=== PATIENT | male | born 1975 | race Caucasian/White ===

== ENCOUNTER 2018-01-18 10:42 | Emergency (ER) | payer BC ==
[2018-01-18 10:51] VITALS: TEMP 98.1; BMI 47.9
[2018-01-18] MEDS ORDERED: morphine CARPU-JECT 4 MG/1 ML DISP.SYRIN IVPUSH ONE (11:09)
--- NOTE | 2018-01-18 11:22 | PDOC ---
History of Present Illness - General Chief Complaint: Pain Stated Complaint: LEFT FLANK PAIN Time Seen by Provider: 01/18/18 10:45 History Source: Patient Exam Limitations: No Limitations - History of Present Illness Initial Comments: 01/18/18 11:24 42 year old w/ a history of obesity and HAKEEM who presents with sharp L sided flank pain that woke him up from sleep 6 days ago went away and returned this AM. The patient notes that the pain does not radiate into the groin or the leg. He denies nausea, vomiting, diarrhea, constipation or fevers but admits that there has been some darkening of the urine throughout the week. He denies any chest pain or shortness of breath. He denies any other complaints at bedside. Past History - Past Medical History Allergies/Adverse Reactions: Allergies Allergy/AdvReac Type Severity Reaction Status Date / Time No Known Allergies Allergy Verified 01/18/18 10:45 Home Medications: Ambulatory Orders Ibuprofen [Motrin -] 600 mg PO TID #21 tablet 01/18/18 Anemia: No Asthma: No Cancer: No Cardiac Disorders: No CVA: No COPD: No CHF: No Dementia: No Diabetes: No GI Disorders: No Disorders: No HTN: No Hypercholesterolemia: No Liver Disease: No Seizures: No Thyroid Disease: No Other medical history: SLEEP APNEA - Suicide/Smoking/Psychosocial Hx Smoking History: Never smoked Hx Alcohol Use: Yes (rarely) Drug/Substance Use Hx: No Substance Use Type: Marijuana Review of Systems - Review of Systems Able to Perform ROS?: Yes Is the patient limited Wallisian proficient: No Constitutional: No: Chills, Diaphoresis, Fever HEENTM: No: Blurred Vision, Tinnitus Respiratory: No: Cough, Orthopnea, Shortness of Breath Cardiac (ROS): No: Chest Pain, Palpitations, Syncope, Chest Tightness ABD/GI: No: Constipated, Diarrhea, Nausea, Vomiting : Yes: See HPI, Flank Pain. No: Burning, Dysuria, Hematuria Musculoskeletal: No: Back Pain, Muscle Pain, Muscle Weakness Neurological: No: Headache, Numbness, Paresthesia, Tingling *Physical Exam - Vital Signs Last Vital Signs Temp Pulse Resp BP Pulse Ox 98.1 F 86 18 121/75 98 01/18/18 10:44 01/18/18 10:44 01/18/18 10:44 01/18/18 10:44 01/18/18 10:44 - Physical Exam Comments: 01/18/18 12:37 GENERAL: Awake, alert, and fully oriented, in no acute distress HEAD: No signs of trauma, normocephalic, atraumatic EYES: EOMI, sclera anicteric, conjunctiva clear ENT: oropharynx clear without exudates. Moist mucosa NECK: Normal ROM, supple LUNGS: No distress, speaks full sentences, clear to auscultation bilaterally HEART: Regular rate and rhythm, normal S1 and S2, no murmurs, rubs or gallops, peripheral pulses normal and equal bilaterally. BACK: L CVA tenderness ABDOMEN: Soft, nontender, normoactive bowel sounds. No guarding, no rebound. No masses EXTREMITIES : Normal inspection, Normal range of motion, no edema. No clubbing or cyanosis. NEUROLOGICAL: Cranial nerves II through XII grossly intact. Normal speech, no focal sensorimotor deficits SKIN: Warm, Dry, normal turgor, no rashes or lesions noted ED Treatment Course - LABORATORY CBC & Chemistry Diagram: 01/18/18 12:10 01/18/18 12:10 Medical Decision Making - Medical Decision Making 42 year old w/ a history of obesity and HAKEEM who presents with sharp L sided flank pain that woke him up from sleep 6 days ago went away and returned this AM. The patient notes that the pain does not radiate into the groin or the leg. He denies nausea, vomiting, diarrhea, constipation or fevers but admits that there has been some darkening of the urine throughout the week. He denies any chest pain or shortness of breath. He denies any other complaints at bedside. DDX including but not limited to: nephrolithiasis vs UTI vs pyelonephritis W/U: - cbc,cmp - ua, ucx - CT-stone TX: - NS - morphine ED Course: 01/18/18 12:30 CT abd: 5mm L UVJ stone 01/18/18 12:39 Toradol, Flomax given 01/18/18 12:59 Patient reassessed. Patient reports that pain under control with toradol and morphine. Discussed with patient follow up and referral to urology. Strict return precautions given. Patient stable for discharge. Informed of all lab and imaging results. Given follow up instructions and strict return precautions. Patient expressed understanding and agree to plan. *DC/Admit/Observation/Transfer Diagnosis at time of Disposition: Kidney stone on left side - Discharge Dispostion Disposition: HOME Condition at time of disposition: Stable Decision to Admit order: No - Prescriptions Prescriptions: Ibuprofen [Motrin -] 600 mg PO TID #21 tablet - Referrals Referrals: Carl Linares MD [Primary Care Provider] - Alejandro Walters MD [Staff Physician] - - Patient Instructions Printed Discharge Instructions: DI for Kidney Stones Additional Instructions: You were seen in the ED for complaints of L sided flank pain. In the ED you were evaluated with labwork and imaging. Your results showed a 5mm L kidney stone. There does not appear to be an acute need for immediate hospitalization. You are advised to follow up with your Primary Care Physician within 1 week. You were given a referral to Urology and are advised to follow up in 3-4 days. You were given a prescription for Motrin 600mg three times a day and a urine strainer to urinate through. Return to the ED immediately if you experience worsening flank and abdominal pain, blood in the urine, fevers, nausea, vomiting, blood in stool, diarrhea or constipation. - Post Discharge Activity
[2018-01-18 11:30] LABS: PH,URINE 5.5 (4.5-8); URINE APPEARANCE Clear; URINE BILIRUBIN Negative (NEGATIVE); URINE COLOR Yellow; URINE GLUCOSE (UA) Negative (NEGATIVE); URINE KETONE Negative (NEGATIVE); URINE LEUK ESTERASE Negative (NEGATIVE); URINE NITRITE Negative (NEGATIVE); URINE PROTEIN Negative (NEGATIVE); URINE UROBILINOGEN 0.2 (0.2-1.0); URINE WBC 0-2 (0-2)
[2018-01-18] MEDS ORDERED: morphine SULFATE 4 MG/ML VIAL ONE (11:50)
--- NOTE | 2018-01-18 11:57 | PDOC ---
Attending Attestation - Resident Resident Name: Adriana Elias - ED Attending Attestation I have performed the following: I have examined & evaluated the patient, The case was reviewed & discussed with the resident, I agree w/resident's findings & plan, Exceptions are as noted - HPI HPI: 01/18/18 11:56 42yo male with h/o obesity, here today c/o left flank pain awoke him from sleep. sharp, radiating down to mid abd. no mod factors. denies urinary complaints such as dysuria or hematuria. no f/c no other complaint.s no change to bowel. no h/o renal colic. did have similar pain 10 days ago. no other complaints. no injuries. no change with movement. - Physicial Exam PE: 01/18/18 11:54 01/18/18 11:56 01/18/18 11:56 awake alert lungs clear bilaterally heart rrr no mrg abd soft obese nt nd no cva tenderenss. ext wwp no edema. nuero alert oriented x 3. - Medical Decision Making 01/18/18 11:57 differential uti pyelo renal colic, msk strain. plan ct a/p ua labs pain control reassess. 01/18/18 13:02 5 mm stone left uvj, mild hydro. d/w ficazzola. pain controlled. will dc on flomax and motrin.
[2018-01-18] MEDS ORDERED: SODIUM CHLORIDE 0.9% 1000 ML INFUS.BAG IV ONE (12:24)
[2018-01-18] MEDS ORDERED: KETOROLAC TROMETHAMINE 30 MG/1 ML VIAL IVPUSH ONE (12:24)
[2018-01-18 12:31] LABS: BASO % 0.4 % (0-2.0); EOS % 0.1 % (0-4.5); HEMATOCRIT 42.8 % (35.4-49); HEMOGLOBIN 14.2 GM/dl (11.7-16.9); LYMPH % 12.6 % (8-40); MCH 29.4 pg (25.7-33.7); MCHC 33.1 g/dl (32.0-35.9); MEAN CELL VOLUME 88.7 fl (80-96); MEAN PLT VOLUME 9.1 fl (7.5-11.1); MONO % 5.4 % (3.8-10.2); NEUT % 81.5 % (42.8-82.8); PLATELET COUNT 275 K/MM3 (134-434); RBC 4.82 M/mm3 (4.00-5.60); RDW 13.8 % (11.9-15.9); WHITE BLOOD COUNT 12.6 K/mm3 (4.0-10.8)
[2018-01-18 12:39] LABS: ALBUMIN 4.1 g/dl (3.5-5.0); ALK PHOS 86 U/L (32-92); ANION GAP 8 MMOL/L (8-16); BILIRUBIN,TOTAL 0.5 mg/dl (0.2-1.0); BLOOD UREA NITROGEN 15 mg/dl (7-18); CALCIUM 9.2 mg/dl (8.4-10.2); CHLORIDE 105 mmol/L (98-107); CO2 24 mmol/L (22-28); CREATININE 0.9 mg/dl (0.6-1.3); GLUCOSE,RANDOM 110 mg/dl (74-106); SGOT/AST 27 U/L (10-42); SGPT/ALT 26 U/L (10-40); SODIUM 137 mmol/L (136-145); TOT PROT 7.7 g/dl (6.4-8.3)
[2018-01-18] MEDS ORDERED: TAMSULOSIN HCL 0.4 MG CAP PO ONE (12:39)
[2018-01-18] MEDS ORDERED: KETOROLAC TROMETHAMINE 30 MG/1 ML VIAL ONE (12:42)
[2018-01-18] MEDS ORDERED: TAMSULOSIN HCL 0.4 MG CAP ONE (12:42)
[2018-01-18 13:23] VITALS: BP 126/70; PULSE 75
== END 2018-01-18 13:26 | disposition home or self-care (01) ==
LOC: FER 10:42
PROC: 3E0333Z Introduction of Anti-inflammatory into Peripheral Vein, Percutaneous Approach (ICD-10-PCS; principal; 2018-01-18)
PROC: 3E033NZ Introduction of Analgesics, Hypnotics, Sedatives into Peripheral Vein, Percutaneous Approach (ICD-10-PCS; 2018-01-18)
PROC: 3E0337Z Introduction of Electrolytic and Water Balance Substance into Peripheral Vein, Percutaneous Approach (ICD-10-PCS; 2018-01-18)
DX: N23 Unspecified renal colic (principal); G47.30 Sleep apnea, unspecified
CPT/HCPCS: 36415; 74176; 80053; 81003; 81015; 85025; 99283-25; J7030

== ENCOUNTER 2018-09-18 17:37 | Emergency (ER) | payer BC ==
[2018-09-18 17:42] VITALS: BMI 49.3
[2018-09-18 18:01] VITALS: BP 126/64; PULSE 90; TEMP 98.4
[2018-09-18 18:23] LABS: BASO % 0.5 % (0-2.0); EOS % 1.4 % (0-4.5); HEMATOCRIT 41.8 % (35.4-49); HEMOGLOBIN 13.6 GM/dl (11.7-16.9); LYMPH % 20.7 % (8-40); MCH 29.1 pg (25.7-33.7); MCHC 32.6 g/dl (32.0-35.9); MEAN CELL VOLUME 89.3 fl (80-96); MEAN PLT VOLUME 8.9 fl (7.5-11.1); MONO % 5.9 % (3.8-10.2); NEUT % 71.5 % (42.8-82.8); PLATELET COUNT 271 K/MM3 (134-434); RBC 4.69 M/mm3 (4.00-5.60); RDW 14.5 % (11.9-15.9); WHITE BLOOD COUNT 10.1 K/mm3 (4.0-10.8)
[2018-09-18 18:41] LABS: ALBUMIN 3.8 g/dl (3.4-5.0); BILIRUBIN,TOTAL 0.5 mg/dl (0.2-1); CALCIUM 9.7 mg/dl (8.5-10); CREATININE 0.8 mg/dl (0.55-1.3); POTASSIUM 4.2 mmol/L (3.5-5.1); TOT PROT 7.2 g/dl (6.4-8.2)
--- NOTE | 2018-09-18 19:14 | PDOC ---
Documentation entered by Morelia Jacobs SCRIBE, acting as scribe for Ravi Srinivasan MD. Ravi Srinivasan MD: This documentation has been prepared by the fitoibReynaldo weems Natalie, SCRIBE, under my direction and personally reviewed by me in its entirety. I confirm that the documentation accurately reflects all work, treatment, procedures, and medical decision making performed by me. History of Present Illness - General Chief Complaint: Chest Pain Stated Complaint: CHEST PAIN X 2 WEEKS History Source: Patient Exam Limitations: No Limitations - History of Present Illness Initial Comments: 09/18/18 18:19 The patient is a 43-year-old male, with a past medical history of sleep apnea ( sleep with CPAP at night, who presents to the ED with 1 week of LT-sided chest pain. The patient describes his pain as intermittent, achy/sharp in sensation, radiating down his LT arm, worsened with deep inspiration, and accompanied by a nonproductive cough. The patient denies doing anything in particular when the pain comes on. He has never experienced symptoms like this in the past. The patient denies any fevers, chills, nausea, vomiting, diarrhea, constipation , or abdominal pain. He denies any palpitations or shortness of breath. Denies any weakness, lightheadedness or changes in strength or sensation. Allergies: NKA Social History: Reports daily marijuana use. Family History: Father has a permanent pacemaker. He denies any history of CA. PCP: Dr. Carl Linares Past History - Past Medical History Allergies/Adverse Reactions: Allergies Allergy/AdvReac Type Severity Reaction Status Date / Time No Known Allergies Allergy Verified 09/18/18 17:38 Home Medications: Ambulatory Orders NK [No Known Home Medication] 09/18/18 Anemia: No Asthma: No Cancer: No Cardiac Disorders: No CVA: No COPD: No CHF: No Dementia: No Diabetes: No GI Disorders: No Disorders: No HTN: No Hypercholesterolemia: No Liver Disease: No Seizures: No Thyroid Disease: No - Suicide/Smoking/Psychosocial Hx Smoking History: Former smoker Have you smoked in the past 12 months: No Information on smoking cessation initiated: No Hx Alcohol Use: Yes (2X MONTH) Drug/Substance Use Hx: Yes (DAILY MARIJUANA) Substance Use Type: Marijuana Cardiac Specific PMH - Complaint Specific PMHX Pacemaker: No Review of Systems - Review of Systems Able to Perform ROS?: Yes Comments:: 09/18/18 18:20 CONSTITUTIONAL: Absent: fever, chills, diaphoresis, generalized weakness, malaise, loss of appetite HEENT: Absent: rhinorrhea, nasal congestion, throat pain, throat swelling, difficulty swallowing, mouth swelling, ear pain, eye pain, visual Changes CARDIOVASCULAR: (+)LT-sided chest pain. Absent: syncope, palpitations, irregular heart rate, lightheadedness, peripheral edema RESPIRATORY: (+)Cough. Absent: shortness of breath, dyspnea with exertion, orthopnea, wheezing, stridor, hemoptysis GASTROINTESTINAL: Absent: abdominal pain, abdominal distension, nausea, vomiting, diarrhea, constipation, melena, hematochezia GENITOURINARY: Absent: dysuria, frequency, urgency, hesitancy, hematuria, flank pain, genital pain MUSCULOSKELETAL: (+)LT arm pain. Absent: arthralgia, joint swelling SKIN: Absent: rash, itching, pallor HEMATOLOGIC/IMMUNOLOGIC: Absent: easy bleeding, easy bruising, lymphadenopathy, frequent infections ENDOCRINE: Absent: unexplained weight gain, unexplained weight loss, heat intolerance, cold intolerance NEUROLOGIC: Absent: headache, focal weakness or paresthesias, dizziness, unsteady gait, seizure, mental status changes, bladder or bowel incontinence PSYCHIATRIC: Absent: anxiety, depression, suicidal or homicidal ideation, hallucinations. *Physical Exam - Vital Signs Last Vital Signs Temp Pulse Resp BP Pulse Ox 98.4 F 90 18 126/64 100 09/18/18 17:38 09/18/18 17:38 09/18/18 17:38 09/18/18 17:38 09/18/18 17:38 - Physical Exam Comments: 09/18/18 18:21 GENERAL: Well developed, well nourished. Awake and alert. No acute distress. HEENT: Normocephalic, atraumatic. PERRLA, EOMI. No conjunctival pallor. Sclera are non- icteric. Moist mucous membranes. Oropharynx is clear. NECK: Supple. Full ROM. No JVD. Carotid pulses 2+ and symmetric, without bruits. No thyromegaly. No lymphadenopathy. CARDIOVASCULAR: Regular rate and rhythm. No murmurs, rubs, or gallops. Distal pulses are 2+ and symmetric. PULMONARY: No evidence of respiratory distress. Lungs clear to auscultation bilaterally. No wheezing, rales or rhonchi. ABDOMINAL: Soft. Non-tender. Non-distended. No rebound or guarding. No organomegaly. Normoactive bowel sounds. MUSCULOSKELETAL Normal range of motion at all joints. No bony deformities or tenderness. No CVA tenderness. EXTREMITIES: No cyanosis. No clubbing. No edema. No calf tenderness. SKIN: Warm and dry. Normal capillary refill. No rashes. No jaundice. NEUROLOGICAL: Alert, awake, appropriate. Cranial nerves 2-12 intact. PSYCHIATRIC: Cooperative. Good eye contact. Appropriate mood and affect. ED Treatment Course - LABORATORY CBC & Chemistry Diagram: 09/18/18 18:10 09/18/18 18:10 - ADDITIONAL ORDERS Additional order review: Laboratory Results 09/18/18 09/18/18 18:10 18:10 Sodium 142 Potassium 4.2 Chloride 105 Carbon Dioxide 28 Anion Gap 9 BUN 21.0 H Creatinine 0.8 Est GFR (CKD-EPI)AfAm 127.70 Est GFR (CKD-EPI)NonAf 110.18 Random Glucose 122 H Calcium 9.7 Total Bilirubin 0.5 AST 30 ALT 30 Alkaline Phosphatase 77 Creatine Kinase 463 H Troponin I < 0.03 Total Protein 7.2 Albumin 3.8 09/18/18 18:10 RBC 4.69 MCV 89.3 MCHC 32.6 RDW 14.5 MPV 8.9 Neutrophils % 71.5 Lymphocytes % 20.7 D Monocytes % 5.9 Eosinophils % 1.4 D Basophils % 0.5 - RADIOLOGY Radiology Studies Ordered: Category Date Time Status CHEST X-RAY PORTABLE* [RAD] Stat Radiology 09/18/18 18:16 Taken Medical Decision Making - Medical Decision Making 09/18/18 17:57 EKG: Normal sinus rhythm 90 per minute. Normal axis and intervals. No ST-T wave changes. Normal EKG. *DC/Admit/Observation/Transfer Diagnosis at time of Disposition: Musculoskeletal chest pain - Discharge Dispostion Disposition: HOME Condition at time of disposition: Stable Decision to Admit order: No - Referrals Referrals: Carl Linares MD [Primary Care Provider] - 2 Days Silvano Brice MD [Staff Physician] - - Patient Instructions Printed Discharge Instructions: DI for Atypical Chest Pain Additional Instructions: No strenuous work with the upper body. Motrin or Aleve. Although there is no sign of heart disease in your present emergency room evaluation, because of your age and risk factors, consider seeing a building equipment inspector and obtaining a stress test Return to ER if your pain becomes more severe, more sustained, or is made worse by exertion or strenuous activity. - Post Discharge Activity
--- NOTE | 2018-09-19 10:12 | EKG ---
Test Reason : Blood Pressure : / mmHG Vent. Rate : 090 BPM Atrial Rate : 090 BPM P-R Int : 120 ms QRS Dur : 096 ms QT Int : 342 ms P-R-T Axes : 077 029 018 degrees QTc Int : 418 ms NORMAL SINUS RHYTHM NORMAL ECG NO PREVIOUS ECGS AVAILABLE Confirmed by YESSENIA HOFFMAN MD ([id number]) on 09/19/2018 10:12:04 AM Referred By: MD BABCOCK Confirmed By:YESSENIA HOFFMAN MD
== END 2018-09-18 19:17 | disposition home or self-care (01) ==
LOC: FER 17:37
DX: M79.10 Myalgia, unspecified site (principal); Z87.891 Personal history of nicotine dependence
CPT/HCPCS: 36415; 71045-TC-FY; 80053; 82550; 82553; 84484; 85025; 93005; 99281-25

== ENCOUNTER 2020-09-09 19:44 | Emergency (ER) | payer BC ==
[2020-09-09 20:07] VITALS: BP 143/96; PULSE 95; TEMP 99.2; BMI 50.5
[2020-09-09 20:31] LABS: BASO % 0.6 % (0-2.0); LYMPH % 18.9 % (8-40); MCH 30.6 pg (25.7-33.7); MCHC 34.8 g/dl (32.0-35.9); MEAN PLT VOLUME 8.6 fl (7.5-11.1); MONO % 5.1 % (3.8-10.2); NEUT % 74.4 % (42.8-82.8); PLATELET COUNT 289 10^3/uL (134-434); RBC 4.89 M/mm3 (4.00-5.60); RDW 13.6 % (11.9-15.9)
[2020-09-09 20:44] LABS: ALBUMIN 4.1 g/dl (3.4-5.0); ALK PHOS 88 U/L (45-117); ANION GAP 11 MMOL/L (8-16); BILIRUBIN,TOTAL 0.6 mg/dl (0.2-1); CALCIUM 9.3 mg/dl (8.5-10); CHLORIDE 101 mmol/L (98-107); CO2 25 mmol/L (21-32); CREATININE 0.8 mg/dl (0.55-1.3); GLUCOSE,RANDOM 103 mg/dl (74-106); SGOT/AST 20 U/L (15-37); SGPT/ALT 31 U/L (13-61); SODIUM 137 mmol/L (136-145)
== END 2020-09-09 22:43 | disposition home or self-care (01) ==
LOC: FER 19:44
DX: R10.9 Unspecified abdominal pain (principal)
CPT/HCPCS: 36415; 74176-TC; 80053; 81003; 82550; 82553; 84484; 85025; 93005; 99284-25

== ENCOUNTER 2020-10-28 04:49 | Day surgery (SDC) | payer BC ==
[2020-10-27 08:40] VITALS: BMI 50.5
[2020-10-28 14:04] VITALS: TEMP 97.3
[2020-10-28 14:39] VITALS: BP 108/67; PULSE 67
== END 2020-10-28 15:10 | disposition home or self-care (01) ==
LOC: JASU-ENDO 04:49
PROVIDERS: ATTEND Internal Medicine Gastroenterology
PROC: 0DBH8ZX Excision of Cecum, Via Natural or Artificial Opening Endoscopic, Diagnostic (ICD-10-PCS; 2020-10-28)
PROC: 0DB68ZX Excision of Stomach, Via Natural or Artificial Opening Endoscopic, Diagnostic (ICD-10-PCS; 2020-10-28)
PROC: 0DBF8ZX Excision of Right Large Intestine, Via Natural or Artificial Opening Endoscopic, Diagnostic (ICD-10-PCS; principal; 2020-10-28 11:15)
DX: K62.5 Hemorrhage of anus and rectum (principal); K25.9 Gastric ulcer, unspecified as acute or chronic, without hemorrhage or perforation; K29.50 Unspecified chronic gastritis without bleeding; R12 Heartburn; D12.0 Benign neoplasm of cecum
CPT/HCPCS: 88305-TC; 88342-TC

== ENCOUNTER 2023-01-05 11:17 | Emergency (ER) | payer BC ==
[2023-01-05 11:43] VITALS: BP 102/70; PULSE 82; RESP 18; TEMP 98.5; BMI 43.5
[2023-01-05] MEDS ORDERED: IBUPROFEN 400 MG TABLET (FP) PO ONE ×2 (12:21→12:36)
== END 2023-01-05 12:47 | disposition home or self-care (01) ==
LOC: FER 11:17
DX: R10.9 Unspecified abdominal pain (principal); N20.0 Calculus of kidney
CPT/HCPCS: 81003; 99283-25

== ENCOUNTER 2023-01-29 04:56 | Day surgery (SDC) | payer BC ==
[2023-01-26 08:20] VITALS: BMI 43.4
[2023-01-29] MEDS ORDERED: MIDAZOLAM HCL 2 MG/2 ML SINGLE DOSE VIAL ONE (10:12)
[2023-01-29] MEDS ORDERED: ONDANSETRON 4 MG/2 ML VIAL ONE (10:12)
[2023-01-29] MEDS ORDERED: FENTANYL CITRATE/PF 50 MCG/ML VIAL ONE (10:12)
[2023-01-29 11:16] VITALS: BP 118/72; PULSE 76; RESP 18; TEMP 97.5
== END 2023-01-29 11:40 | disposition home or self-care (01) ==
LOC: JASU-SURG 04:56
PROVIDERS: ATTEND Urology
PROC: 0TF4XZZ Fragmentation in Left Kidney Pelvis, External Approach (ICD-10-PCS; principal; 2023-01-29 10:30)
DX: N20.0 Calculus of kidney (principal)

== ENCOUNTER 2023-03-26 04:39 | Day surgery (SDC) | payer BC ==
[2023-03-20 15:12] VITALS: BMI 43.4
[2023-03-26 14:29] VITALS: RESP 18
[2023-03-26] MEDS ORDERED: MIDAZOLAM HCL 2 MG/2 ML SINGLE DOSE VIAL ONE ×2 (17:25→17:31)
[2023-03-26 18:27] VITALS: BP 110/62; PULSE 78; TEMP 97.9
== END 2023-03-26 18:35 | disposition home or self-care (01) ==
LOC: JASU-SURG 04:39
PROVIDERS: ATTEND Urology
PROC: 0TF3XZZ Fragmentation in Right Kidney Pelvis, External Approach (ICD-10-PCS; principal; 2023-03-26 16:30)
DX: N20.0 Calculus of kidney (principal)

== ENCOUNTER 2023-03-27 08:46 | Emergency (ER) | payer BC ==
[2023-03-27] MEDS ORDERED: ONDANSETRON 4 MG/2 ML VIAL IVPB ONE (09:03)
[2023-03-27] MEDS ORDERED: KETOROLAC TROMETHAMINE 30 MG/1 ML VIAL IVPUSH ONE (09:03)
[2023-03-27] MEDS ORDERED: SODIUM CHLORIDE 1,000 ML IV ONE (09:03)
[2023-03-27] MEDS ORDERED: KETOROLAC TROMETHAMINE 15 MG/ML VIAL ONE (09:22)
[2023-03-27] MEDS ORDERED: ONDANSETRON 4 MG/2 ML VIAL ONE (09:22)
[2023-03-27 09:55] LABS: HEMATOCRIT 44.2 % (35.4-49); HEMOGLOBIN 14.9 G/dL (11.7-16.9); MCH 30.4 pg (25.7-33.7); MCHC 33.8 g/dl (32.0-35.9); MEAN PLT VOLUME 9.4 fl (7.5-11.1); PLATELET COUNT 284.6 10^3/uL (134-434); RBC 4.91 10^6/uL (4.00-5.60); RDW 14.9 % (11.9-15.9); WHITE BLOOD COUNT 13.1 10^3/uL (4.0-10.8)
[2023-03-27 10:00] LABS: ALBUMIN 4.5 g/dl (3.4-5.0); BILIRUBIN,TOTAL 0.4 mg/dl (0.2-1); CALCIUM 9.9 mg/dl (8.5-10.1); CREATININE 1.1 mg/dl (0.6-1.3); POTASSIUM 4.3 mmol/L (3.5-5.1); TOT PROT 7.2 g/dl (6.4-8.2)
[2023-03-27 10:01] LABS: PLATELET ESTIMATE ADEQUATE
[2023-03-27] MEDS ORDERED: morphine CARPU-JECT 4 MG/1 ML DISP.SYRIN IVPUSH ONE (10:13)
[2023-03-27] MEDS ORDERED: morphine SULFATE 4 MG/ML VIAL ONE (10:18)
[2023-03-27 10:51] VITALS: RESP 16; BMI 43.4
[2023-03-27] MEDS ORDERED: HYDROmorphone HCl 2 MG/ML VIAL IM ONE (13:11)
[2023-03-27] MEDS ORDERED: HYDROmorphone HCl 2 MG/ML VIAL ONE (13:22)
[2023-03-27 16:06] VITALS: BP 112/67; PULSE 53; TEMP 98.3
== END 2023-03-27 16:06 | disposition home or self-care (01) ==
LOC: FER 08:46
PROC: 3E0333Z Introduction of Anti-inflammatory into Peripheral Vein, Percutaneous Approach (ICD-10-PCS; principal; 2023-03-27)
PROC: 3E033GC Introduction of Other Therapeutic Substance into Peripheral Vein, Percutaneous Approach (ICD-10-PCS; 2023-03-27)
PROC: 3E033GC Introduction of Other Therapeutic Substance into Peripheral Vein, Percutaneous Approach (ICD-10-PCS; 2023-03-27)
PROC: 3E023GC Introduction of Other Therapeutic Substance into Muscle, Percutaneous Approach (ICD-10-PCS; 2023-03-27)
PROC: 3E0337Z Introduction of Electrolytic and Water Balance Substance into Peripheral Vein, Percutaneous Approach (ICD-10-PCS; 2023-03-27)
DX: R10.31 Right lower quadrant pain (principal); N20.0 Calculus of kidney
CPT/HCPCS: 36415; 74176-TC; 80053; 81003; 85027; 99284-25

== ENCOUNTER 2024-07-25 04:12 | Emergency (ER) | payer BC ==
[2024-07-25 04:22] VITALS: BP 110/86; PULSE 73; RESP 18; TEMP 97.3; BMI 42.7
[2024-07-25] MEDS ORDERED: predniSONE 20 MG TABLET (UD) ONE (04:25)
[2024-07-25] MEDS ORDERED: KETOROLAC TROMETHAMINE 60 MG/2 ML VIAL ONE (04:25)
[2024-07-25] MEDS: KETOROLAC TROMETHAMINE 60 MG/2 ML VIAL IM ONE (04:30)
[2024-07-25] MEDS: predniSONE 20 MG TABLET (UD) PO ONE (04:30)
[2024-07-25] MEDS ORDERED: METHOCARBAMOL 500 MG TABLET ONE (04:31)
[2024-07-25] MEDS: METHOCARBAMOL 500 MG TABLET PO ONE (04:33)
== END 2024-07-25 07:07 | disposition home or self-care (01) ==
LOC: FER 04:12
PROC: 3E0233Z Introduction of Anti-inflammatory into Muscle, Percutaneous Approach (ICD-10-PCS; principal; 2024-07-25)
DX: M54.41 Lumbago with sciatica, right side (principal)
CPT/HCPCS: 99284-25

== ENCOUNTER 2024-08-14 05:52 | Day surgery (SDC) | payer BC ==
[2024-08-07 11:43] VITALS: BMI 42.7
[2024-08-14 10:39] VITALS: BP 111/65; PULSE 63; RESP 17; TEMP 98
== END 2024-08-14 10:36 | disposition home or self-care (01) ==
LOC: JASU-ENDO 05:52
PROVIDERS: ATTEND Internal Medicine Gastroenterology
PROC: 0DBL8ZX Excision of Transverse Colon, Via Natural or Artificial Opening Endoscopic, Diagnostic (ICD-10-PCS; principal; 2024-08-14 09:00)
DX: Z12.11 Encounter for screening for malignant neoplasm of colon (principal); D12.3 Benign neoplasm of transverse colon; K64.8 Other hemorrhoids; Z86.0100 Personal history of colon polyps, unspecified
CPT/HCPCS: 88305-TC; 88342-TC